=== PATIENT | male | born 1965 | race Caucasian/White ===

== ENCOUNTER 2016-07-30 14:07 | Outpatient (CLI) | payer OTHER ==
--- NOTE | 2016-07-30 15:49 | DIAGNOSTIC IMAGING REPORT ---
PROCEDURE: XR HIP BILATERAL INDICATION: BILATERAL HIP AND LOW BACK PAIN TECHNIQUE: AP view of the pelvis and hips with lateral views of the bilateral hips. COMPARISON: None. FINDINGS: RIGHT HIP: Osseous structures and joint spaces are normal. LEFT HIP: Osseous structures and joint spaces are normal. PELVIS: Osseous pelvis is normal. IMPRESSION: 1. Negative pelvis and bilateral hips.
--- NOTE | 2016-07-30 15:51 | DIAGNOSTIC IMAGING REPORT ---
PROCEDURE: XR LUMBAR SPINE 2 OR 3 VIEWS INDICATION: BILATERAL HIP AND LOW BACK PAIN TECHNIQUE: Three views. COMPARISON: None. FINDINGS: Normal alignment without fracture or suspicious osseous lesion. Mild narrowing of the L2-3 to L5-S1 disc spaces. Mild spur formation. Soft tissues are unremarkable. IMPRESSION: 1. Mild degenerative changes with multilevel disc space narrowing.
== END 2016-07-30 23:00 ==
LOC: XR SRH 14:07
DX: M25.552 Pain in left hip (principal); M25.551 Pain in right hip; M48.06 Spinal stenosis, lumbar region; M48.07 Spinal stenosis, lumbosacral region